=== PATIENT | female | born 1990 | race African-American/Black ===

== ENCOUNTER 2016-07-13 13:26 | Emergency (ER) | payer SELFPAY ==
[~2016-07-13] VITALS: Ht 157.5 cm; Wt 86.2 kg
[~2016-07-13 13:26] MED LIST: NKM
--- NOTE | 2016-07-13 13:55 | Emergency Room Report ---
History of Present Illness General Chief Complaint: Vomiting Source: Patient Present Illness HPI 26-year-old female presents emergency department complaining of nausea vomiting and diarrhea x2 days. Patient also reports other family members with similar symptoms. Patient denies fevers or chills patient denies abdominal pain. Patient reports nausea his primary symptom and states that she has had 6 episodes of vomiting this morning and approximately 3 yesterday. Patient denies blood in the vomit or stool. She denies recent travel. She denies . Patient denies dysuria, hematuria or frequency. Denies dizziness, imbalance, BRITT, or syncope. Denies CP, Palpitations, LOC, AMS, dizziness, Changes in Vision, Sensation, paresthesias, or a sudden severe headache. Allergies: Coded Allergies: No Known Allergies (Unverified , 02/21/12) Patient History Past Medical History: see triage record Past Surgical History: none Pertinent Family History: none Last Menstrual Period: last week Now: No Immunizations: UTD Reviewed Nursing Documentation: PMH: Agreed, PSxH: Agreed Nursing Documentation-PMH Past Medical History: No Stated History Review of Systems All Other Systems: negative except mentioned in HPI Physical Exam Vital Signs Date Time Temp Pulse Resp B/P Pulse Ox O2 Delivery O2 Flow Rate FiO2 07/13/ 13:49 97.9 74 18 116/78 98 Room Air Sp02 EP Interpretation: reviewed, normal General Appearance: alert, GCS 15, non-toxic, mild distress - pt. is nauseated and recently vomited. Head: normocephalic, atraumatic Eyes: bilateral eye PERRL, bilateral eye normal inspection ENT: hearing grossly normal, normal pharynx, no angioedema, normal voice Neck: full range of motion, supple/symm/no masses Respiratory: lungs clear, normal breath sounds, speaking full sentences Cardiovascular #1: regular rate, rhythm, no edema Gastrointestinal: normal bowel sounds, non tender, soft, no guarding, no rebound, other - no abdominal TTP Rectal: deferred Genitourinary: normal inspection, no CVA tenderness Musculoskeletal: back normal, gait/station normal, normal range of motion, non- tender, no calf tenderness Neurologic: alert, oriented x3, responsive, motor strength/tone normal, sensory intact, cerebellar normal, normal gait, speech normal Psychiatric: judgement/insight normal, memory normal, mood/affect normal, no suicidal/homicidal ideation Skin: normal color, no rash, warm/dry, well hydrated Lymphatic: no adenopathy Medical Decision Making PA Attestation Dr. Deluca is my supervising Physician whom patient management has been discussed with. Diagnostic Impression: Primary Impression: UTI (urinary tract infection) Qualified Codes: N30.00 - Acute cystitis without hematuria Additional Impression: Gastroenteritis ER Course 26-year-old female presents emergency department complaining of nausea vomiting and diarrhea x2 days. Patient also reports other family members with similar symptoms. Patient denies fevers or chills patient denies abdominal pain. Patient reports nausea his primary symptom and states that she has had 6 episodes of vomiting this morning and approximately 3 yesterday. Patient denies blood in the vomit or stool. She denies recent travel. She denies . Patient denies dysuria, hematuria or frequency. Ddx considered but are not limited to GE, colitis, acute appy, SBO, * , dehydration Vital signs: pt. is afebrile, H&PE are most consistent with GE - given Hx that family member have had vomiting and diarrhea as well, pt is afebrile and no abdominal tenderness I do not feel laboratory work up beyond UA/hcg is necessary at this time. PE does not suggest hypovolemia at this time. ORDERS: -UA: indicates UTI, bacteria, Nitrite positive, and wbc's - Urine Hcg; Negative. ED INTERVENTIONS: - 4mg PO zofran for nausea. -GI Cocktail --- pt threw up the GI cocktail and initial Zofran as all were given at the same time. - 4mg Zofran PO -10mg Reglan PO -Pt. tolerate oral fluid challenge without vomiting for the past 30 minutes. pt. states she is feeling better. DISCHARGE: At this time pt. is stable for d/c to home. Will provide printed patient care instructions, and any necessary prescriptions. Care plan and follow up instructions have been discussed with the patient prior to discharge. Last Vital Signs Date Time Temp Pulse Resp B/P Pulse Ox O2 Delivery O2 Flow Rate FiO2 07/13/16 13:49 97.9 74 18 116/78 98 Room Air Disposition: HOME, SELF-CARE Condition: Stable Scripts Nitrofurantoin Monohyd/M-Cryst* (MACROBID 100 MG*) 100 Mg Capsule 100 MG ORAL EVERY 12 HOURS for 5 Days, #10 CAP Prov: Rehana Quinonez 07/13/16 Dicyclomine Hcl* (BENTYL*) 10 Mg Capsule 10 MG ORAL FOUR TIMES A DAY for 2 Days, #10 CAP Prov: Rehana Quinonez 07/13/16 Ondansetron Odt* (ZOFRAN ODT*) 8 Mg Tab.rapdis 8 MG ORAL Q6H Y for Nausea & Vomiting, #20 TAB Prov: Rehana Quinonez 07/13/16 Patient Instructions: Nausea and Vomiting, Adult, Urinary Tract Infection Additional Instructions: Take medications as directed. Follow up with PCP in 3-5 days Return sooner to ED if new symptoms occur, or current symptoms become worse. - Please note that this Emergency Department Report was dictated using [employer] floor attendant technology software, occasionally this can lead to erroneous entry secondary to interpretation by the dictation equipment. Rehana Quinonez Jul 13, 2016 13:55
[2016-07-13] MEDS ORDERED: Dicyclomine HCl 10mg/5ml oral soln ORAL ONE (14:00)
[2016-07-13] MEDS ORDERED: Mylanta II UD 30ml ORAL ONE (14:00)
[2016-07-13] MEDS ORDERED: Lidocaine 2% Visc 15ml soln ORAL ONE (14:00)
[2016-07-13 14:29] LABS: APPEARANCE,URINE SLIGHTLY CLOUDY; KETONES,URINE 4+ (NEGATIVE); LEUKOCYTE ESTERASE ,URINE 2+ (NEGATIVE); NITRITE,URINE POSITIVE (NEGATIVE); PH,URINE 6.5 (4.5-8.0); PROTEIN,URINE 3+ (NEGATIVE); UROBILINOGEN,URINE 8 MG/DL (0.0-1.0)
[2016-07-13 14:39] LABS: BACTERIA,URINE MODERATE /HPF; MUCUS,URINE FEW /LPF (NONE/OCC); SQUAMOUS EPITHELIAL CELL,UR MODERATE /LPF (NONE/OCC)
[2016-07-13 14:40] LABS: ICTOTEST NEGATIVE
[2016-07-13 15:24] VITALS: BP 116/78
[2016-07-13] MEDS ORDERED: NITROFURANTOIN100 M2 ORAL (16:28)
[2016-07-13] MEDS ORDERED: ZOFRAN ODT8 MG ORAL (16:28)
[2016-07-13] MEDS ORDERED: BENTYL10 MG ORAL (16:28)
[2016-07-13 17:25] VITALS: BP 121/76
[2016-07-13 17:26] VITALS: BP 116/78
== END 2016-07-13 17:26 | disposition home or self-care (01) ==
LOC: EMR 15:17
DX: N30.00 Acute cystitis without hematuria (principal); K52.9 Noninfective gastroenteritis and colitis, unspecified
CPT/HCPCS: 81003; 81025; 87086; 87181; 99284

== ENCOUNTER 2016-09-02 20:40 | Emergency (ER) | payer MEDICAID ==
[~2016-09-02] VITALS: Ht 157.5 cm; Wt 73.0 kg
[~2016-09-02 20:40] MED LIST changes: +BENTYL10 MG ORAL; +NITROFURANTOIN100 M2 ORAL; +ZOFRAN ODT8 MG ORAL
[2016-09-02] MEDS ORDERED: NKM (21:00)
[2016-09-02] MEDS ORDERED: ANUSOL-HC25 MG RECTAL (21:12)
--- NOTE | 2016-09-02 21:12 | Emergency Room Report ---
History of Present Illness General Chief Complaint: Gastrointestinal Illness Source: Patient Present Illness HPI Is a 26-year-old female with no past medical history. She presents with chief complaint of rectal bleeding. Has been on off for the last couple months. Sometimes blood in double. Worse with have a bowel movement. Denies any pain. Denies any nausea vomiting. No other complaint. Allergies: Coded Allergies: No Known Allergies (Unverified , 02/21/12) Patient History Past Medical History: none, see triage record, old chart reviewed Past Surgical History: torey Pertinent Family History: none Social History: Denies: smoking Last Menstrual Period: July Now: No Immunizations: other Reviewed Nursing Documentation: PMH: Agreed, PSxH: Agreed Nursing Documentation-PMH Hx Gastrointestinal Problems: Yes - CHOLECYSTECTOMY 2010 Review of Systems Eye: Denies: blurred vision, eye pain ENT: Denies: ear pain, nose congestion, throat swelling Respiratory: Denies: cough, shortness of breath Cardiovascular: Denies: chest pain, palpitations Gastrointestinal: Denies: abdominal pain, diarrhea, nausea, vomiting Musculoskeletal: Denies: back pain, joint pain Skin: Denies: rash Neurological: Denies: headache, numbness Endocrine: Denies: increased thirst, increased urine Hematologic/Lymphatic: Denies: easy bruising All Other Systems: negative except mentioned in HPI Physical Exam Vital Signs Date Time Temp Pulse Resp B/P Pulse Ox O2 Delivery O2 Flow Rate FiO2 09/02/16 20:52 98.4 95 16 99/66 100 Room Air vitals normal Sp02 EP Interpretation: reviewed, normal General Appearance: well appearing, no apparent distress, alert Head: normocephalic, atraumatic Eyes: bilateral eye EOMI, bilateral eye PERRL ENT: hearing grossly normal, normal pharynx Neck: full range of motion, supple, no meningismus Respiratory: chest non-tender, lungs clear, normal breath sounds Cardiovascular #1: regular rate, rhythm, no murmur Gastrointestinal: normal bowel sounds, non tender, no mass, no organomegaly, no bruit, non-distended Rectal: other - Small internal hemorrhoid at 5:00 position. This was done with female nurse electric tripper machine operator. Musculoskeletal: back normal, gait/station normal, normal range of motion Psychiatric: mood/affect normal Skin: warm/dry Medical Decision Making Diagnostic Impression: Primary Impression: Internal hemorrhoid, bleeding ER Course Patient with rectal bleeding from internal hemorrhoid. No evidence of thrombosis. No evidence of active bleeding. We'll discharge home. Last Vital Signs Date Time Temp Pulse Resp B/P Pulse Ox O2 Delivery O2 Flow Rate FiO2 09/02/16 20:52 98.4 95 16 99/66 100 Room Air Status: improved Disposition: HOME, SELF-CARE Condition: Stable Scripts Hydrocortisone Acetate* (ANUSOL-HC*) 25 Mg Supp.rect 1 SUPP RECTAL TWICE A DAY, #14 SUPP Prov: JOSE YOUNGBLOOD M.D. 09/02/16 Additional Instructions: Followup with your DrScotty in 3-5 days. You may need to see a GI Dr. Return if worse. JOSE YOUNGBLOOD M.D. Sep 02, 2016 21:12
[2016-09-02 21:14] VITALS: BP 99/66
[2016-09-02 21:18] VITALS: BP 99/66
== END 2016-09-02 21:18 | disposition home or self-care (01) ==
LOC: EMR 21:15
DX: K64.8 Other hemorrhoids (principal)
CPT/HCPCS: 99283

== ENCOUNTER 2016-11-10 00:16 | Emergency (ER) | payer MEDICAID ==
[~2016-11-10] VITALS: Ht 157.5 cm; Wt 73.5 kg
[~2016-11-10 00:16] MED LIST changes: +ANUSOL-HC25 MG RECTAL
[2016-11-10 00:45] VITALS: BP 117/81
[2016-11-10 01:39] LABS: APPEARANCE,URINE CLEAR; KETONES,URINE NEGATIVE (NEGATIVE); LEUKOCYTE ESTERASE ,URINE 2+ (NEGATIVE); NITRITE,URINE NEGATIVE (NEGATIVE); PH,URINE 6 (4.5-8.0); PROTEIN,URINE NEGATIVE (NEGATIVE); UROBILINOGEN,URINE 1 MG/DL (0.0-1.0)
[2016-11-10 01:40] LABS: BASOPHILS % (AUTO) 1.5 % (0.0-2.0); EOSINOPHILS % (AUTO) 2.7 % (0.0-3.0); LYMPHOCYTES % (AUTO) 48.3 % (20.0-45.0); MEAN CORPUSCULAR HEMOGLOBIN 30.7 PG (27.0-31.0); MEAN CORPUSCULAR HGB CONC 33.1 G/DL (32.0-36.0); MEAN CORPUSCULAR VOLUME 93 FL (80-99); MEAN PLATELET VOLUME 6.5 FL (6.5-10.1); MONOCYTES % (AUTO) 4.3 % (1.0-10.0); NEUTROPHILS % (AUTO) 43.2 % (45.0-75.0); PLATELET COUNT 269 K/UL (150-450); RED BLOOD COUNT 3.74 M/UL (4.20-5.40); RED CELL DISTRIBUTION WIDTH 12.6 % (11.6-14.8); WHITE BLOOD COUNT 5.4 K/UL (4.8-10.8)
[2016-11-10 01:50] LABS: BACTERIA,URINE FEW /HPF; SQUAMOUS EPITHELIAL CELL,UR FEW /LPF (NONE/OCC); WBC,URINE 15-20 /HPF (0 - 2)
[2016-11-10 01:57] LABS: ALANINE AMINOTRANSFERASE 7 U/L (3-33); ALBUMIN/GLOBULIN RATIO 1.2 (1.0-2.7); ANION GAP 12 (5-15); ASPARTATE AMINO TRANSFERASE 13 U/L (5-40); CALCIUM 9.1 mg/dL (8.6-10.2); CARBON DIOXIDE 24 mEQ/L (20-30); CHLORIDE 104 mEQ/L (98-107); CREATININE 0.7 mg/dL (0.5-0.9); GLOMERULAR FILTRATION RATE > 60 mL/min (>60); HEMOLYSIS 10; LIPASE 39 U/L (< 60); SODIUM 140 mEQ/L (135-145); TOTAL PROTEIN 7.3 g/dL (6.6-8.7)
[2016-11-10 02:45] VITALS: BP 125/79
[2016-11-10] MEDS ORDERED: IBUPROFEN600 MG ORAL (04:40)
[2016-11-10 04:45] VITALS: BP 121/75
--- NOTE | 2016-11-10 05:36 | Emergency Room Report ---
History of Present Illness General Chief Complaint: Vaginal Source: Patient Present Illness HPI 26-year-old female presents ED complaining of cramping pain and vaginal bleeding x2 days. States that she had her usual period, which then started to subside but states that bleeding resumed again. States that this is unusual for her as she typically has regular periods. Pain is cramping, 5 at 10, nonradiating. Denies fevers or chills. Denies nausea or vomiting. No other aggravating relieving factors. Denies any other associated symptoms Allergies: Coded Allergies: No Known Allergies (Unverified , 11/10/16) Patient History Past Medical History: none Past Surgical History: torey Pertinent Family History: none Social History: Denies: alcohol use, drug use, smoking Last Menstrual Period: 10/31/16 Now: No Immunizations: UTD Reviewed Nursing Documentation: PMH: Agreed, PSxH: Agreed Nursing Documentation-PMH Hx Gastrointestinal Problems: Yes - gallbladder removed 2010 Review of Systems All Other Systems: negative except mentioned in HPI Physical Exam Vital Signs Date Time Temp Pulse Resp B/P Pulse Ox O2 Delivery O2 Flow Rate FiO2 11/10/16 00:37 97.9 75 18 117/81 99 Room Air Sp02 EP Interpretation: reviewed, normal General Appearance: no apparent distress, alert, GCS 15, non-toxic Head: normocephalic, atraumatic Eyes: bilateral eye PERRL, bilateral eye normal inspection ENT: hearing grossly normal, normal pharynx, no angioedema, normal voice Neck: full range of motion, supple/symm/no masses Respiratory: chest non-tender, lungs clear, normal breath sounds, speaking full sentences Cardiovascular #1: regular rate, rhythm, no edema Cardiovascular #2: 2+ carotid (R), 2+ carotid (L), 2+ radial (R), 2+ radial (L) , 2+ dorsalis pedis (R), 2+ dorsalis pedis (L) Gastrointestinal: normal bowel sounds, non tender, soft, non-distended, no guarding, no rebound Rectal: deferred Genitourinary: normal inspection, no CVA tenderness Musculoskeletal: back normal, gait/station normal, normal range of motion, non- tender Neurologic: alert, oriented x3, responsive, motor strength/tone normal, sensory intact, speech normal Psychiatric: judgement/insight normal, memory normal, mood/affect normal, no suicidal/homicidal ideation Reflexes: 3+ bicep (R), 3+ bicep (L), 3+ tricep (R), 3+ tricep (L), 3+ knee (R) , 3+ knee (L) Skin: normal color, no rash, warm/dry, well hydrated Lymphatic: no adenopathy Medical Decision Making Diagnostic Impression: Primary Impression: Dysfunctional uterine bleeding ER Course Hospital Course 26-year-old F presents to ED with vaginal bleeding, abd pain Differential diagnosis includes- ovarian cyst, torsion, ectopic , DUB Clinical course Patient placed on stretcher. After initial history and physical I ordered labs , IV fluids, and pelvic US Labs - no leukocytosis, Hb/Hct stable, electrolytes ok, LFTs normal, UA + blood pelvic US - R ovary with multiple follicles likely DUB. recommend followup with OBGYN I feel this is a highly complex case requiring extensive working including EKG/ Rhythm strip, Xray/CT/US, Blood/urine lab work, repeat exams while in ED, and administration of strong opiates/narcotics for pain control, admission to hospital or close patient follow up. Diagnosis - dysfunctional uterine bleeding Stable and discharged to home. Followup with OBGYN. Return to ED if symptoms recur or worsen Labs Test 11/10/16 01:25 White Blood Count 5.4 K/UL (4.8-10.8) Red Blood Count 3.74 M/UL (4.20-5.40) Hemoglobin 11.5 G/DL (12.0-16.0) Hematocrit 34.7 % (37.0-47.0) Mean Corpuscular Volume 93 FL (80-99) Mean Corpuscular Hemoglobin 30.7 PG (27.0-31.0) Mean Corpuscular Hemoglobin Concent 33.1 G/DL (32.0-36.0) Red Cell Distribution Width 12.6 % (11.6-14.8) Platelet Count 269 K/UL (150-450) Mean Platelet Volume 6.5 FL (6.5-10.1) Neutrophils (%) (Auto) 43.2 % (45.0-75.0) Lymphocytes (%) (Auto) 48.3 % (20.0-45.0) Monocytes (%) (Auto) 4.3 % (1.0-10.0) Eosinophils (%) (Auto) 2.7 % (0.0-3.0) Basophils (%) (Auto) 1.5 % (0.0-2.0) Urine Color Yellow Urine Appearance Clear Urine pH 6 (4.5-8.0) Urine Specific [place] 1.015 (1.005-1.035) Urine Protein Negative (NEGATIVE) Urine Glucose (UA) Negative (NEGATIVE) Urine Ketones Negative (NEGATIVE) Urine Occult Blood 4+ (NEGATIVE) Urine Nitrite Negative (NEGATIVE) Urine Bilirubin Negative (NEGATIVE) Urine Urobilinogen 1 MG/DL (0.0-1.0) Urine Leukocyte Esterase 2+ (NEGATIVE) Urine RBC 5-10 /HPF (0 - 2) Urine WBC 15-20 /HPF (0 - 2) Urine Squamous Epithelial Cells Few /LPF (NONE/OCC) Urine Bacteria Few /HPF (NONE) Urine HCG, Qualitative Negative Sodium Level 140 mEQ/L (135-145) Potassium Level 4.0 mEQ/L (3.4-4.9) Chloride Level 104 mEQ/L (98-107) Carbon Dioxide Level 24 mEQ/L (20-30) Anion Gap 12 (5-15) Blood Urea Nitrogen 13 mg/dL (7-23) Creatinine 0.7 mg/dL (0.5-0.9) Estimat Glomerular Filtration Rate > 60 mL/min (>60) Glucose Level 106 mg/dL (74-106) Calcium Level 9.1 mg/dL (8.6-10.2) Total Bilirubin 0.3 mg/dL (0.0-1.2) Aspartate Amino Transf (AST/SGOT) 13 U/L (5-40) Alanine Aminotransferase (ALT/SGPT) 7 U/L (3-33) Alkaline Phosphatase 62 U/L (35-104) Total Protein 7.3 g/dL (6.6-8.7) Albumin 4.0 g/dL (3.5-5.2) Globulin 3.3 g/dL Albumin/Globulin Ratio 1.2 (1.0-2.7) Lipase 39 U/L (< 60) CT/MRI/US Diagnostic Results CT/MRI/US Diagnostic Results : Imaging Test Ordered: Pelvic US Impression R ovary with multiple follicles. L ovary unremarkable Last Vital Signs Date Time Temp Pulse Resp B/P Pulse Ox O2 Delivery O2 Flow Rate FiO2 8/16/17 04:45 97.9 71 16 121/75 100 Room Air Status: improved Disposition: HOME, SELF-CARE Condition: Stable Scripts Ibuprofen* (MOTRIN*) 600 Mg Tablet 600 MG ORAL Q8H Y for For Pain, #30 TAB 0 Refills Prov: RICHARD SOLORIO M.D. 11/10/16 Patient Instructions: Abnormal Uterine Bleeding, [id number] RICHARD SOLORIO M.D. Nov 10, 2016 05:36
--- NOTE | 2016-11-10 10:15 | Diagnostic Imaging Report ---
Indication: ABD PAIN bleeding and pelvic pain negative urine test Technique: Transabdominal and transvaginal images Comparison: None Findings: Uterus is retroverted and retroflexed, measures 10.4 cm in length by 5.1 cm AP. Endometrium measures 3 mm thick. No myometrial abnormality. Right ovary measures 3.2 cm length. Left ovary measures 3.2 cm length. No adnexal mass. No free cul-de-sac fluid Impression: Negative
== END 2016-11-10 04:45 | disposition home or self-care (01) ==
LOC: EMR 00:58
DX: N93.8 Other specified abnormal uterine and vaginal bleeding (principal); Z90.49 Acquired absence of other specified parts of digestive tract
CPT/HCPCS: 36415; 76856; 80053; 81003; 81025; 83690; 85025; 87086; 96360

== ENCOUNTER 2019-02-02 16:59 | Emergency (ER) | payer SELFPAY ==
[~2019-02-02] VITALS: Ht 157.5 cm; Wt 81.6 kg
[~2019-02-02 16:59] MED LIST changes: +IBUPROFEN600 MG ORAL
[2019-02-02 17:00] VITALS: BP 104/74
--- NOTE | 2019-02-02 17:00 | NUR ---
ED Nurse Note: Patient presented to ER from home brought in by self c/o flu-like symptoms: difficulty breathing due to congestion, sore throat, white spots in throat, and nasal congestion. Patient aao x 4 and ambulatory. Patient rates pain 10/10. no acute distress noted.
[2019-02-02] MEDS ORDERED: PROMETHAZINE-D118 ML ORAL (17:33)
[2019-02-02] MEDS ORDERED: ALBUTEROL SULF8.5 GM INH (17:33)
[2019-02-02] MEDS ORDERED: AMOXICILLIN500 MG ORAL (17:33)
[2019-02-02 17:37] VITALS: BP 110/75
--- NOTE | 2019-02-02 17:37 | NUR ---
ER DISCHARGE NOTE: Patient is cleared to be discharged per ERMD, pt is aox4, on room air, with stable vital signs. pt was given dc and prescription instructions, pt was able to verbalize understanding, pt id band removed. pt is able to ambulate with steady gait. pt took all belongings. pt stable upon discharge.
--- NOTE | 2019-02-02 18:01 | Emergency Room Report ---
History of Present Illness General Chief Complaint: Sore Throat Source: Patient Present Illness HPI 29-year-old female presents ED for evaluation. Complaining of sore throat and cough and congestion for the last 8 days. Saw white spots on her throat so she came to the ED for evaluation. Pain is dull, 9 out of 10, nonradiating. Denies fevers or chills. Denies sick contacts or recent travel. Denies recent antibiotic received flu shot this year. Admits to smoking marijuana. No other aggravating relieving factors. Denies any other associated symptoms Allergies: Coded Allergies: No Known Allergies (Unverified , 11/10/16) Patient History Past Medical History: none Past Surgical History: torey Pertinent Family History: none Social History: Reports: smoking; Denies: alcohol use, drug use Now: No Immunizations: UTD Reviewed Nursing Documentation: PMH: Agreed; PSxH: Agreed Nursing Documentation-PMH Past Medical History: No History, Except For Hx Gastrointestinal Problems: Yes - gallbladder removed 2010 Review of Systems All Other Systems: negative except mentioned in HPI Physical Exam Vital Signs Date Time Temp Pulse Resp B/P (MAP) Pulse Ox O2 Delivery O2 Flow Rate FiO2 02/02/19 17:00 98.4 17 104/74 96 Room Air 02/02/19 17:12 89 Sp02 EP Interpretation: reviewed, normal General Appearance: no apparent distress, alert, GCS 15, non-toxic Head: normocephalic, atraumatic Eyes: bilateral eye normal inspection, bilateral eye PERRL ENT: hearing grossly normal, no angioedema, normal voice, TMs + canals normal, uvula midline, pharyngeal erythema, tonsillar exudate Neck: full range of motion, supple, no meningismus, supple/symm/no masses Respiratory: chest non-tender, lungs clear, normal breath sounds, speaking full sentences Cardiovascular #1: regular rate, rhythm, no edema Cardiovascular #2: 2+ carotid (R), 2+ carotid (L), 2+ radial (R), 2+ radial (L) , 2+ dorsalis pedis (R), 2+ dorsalis pedis (L) Gastrointestinal: normal bowel sounds, non tender, soft, non-distended, no guarding, no rebound Rectal: deferred Genitourinary: normal inspection, no CVA tenderness Musculoskeletal: back normal, gait/station normal, normal range of motion, non- tender Neurologic: alert, oriented x3, responsive, motor strength/tone normal, sensory intact, speech normal Psychiatric: judgement/insight normal, memory normal, mood/affect normal, no suicidal/homicidal ideation Reflexes: 3+ bicep (R), 3+ bicep (L), 3+ tricep (R), 3+ tricep (L), 3+ knee (R) , 3+ knee (L) Skin: no rash Lymphatic: no adenopathy Medical Decision Making Diagnostic Impression: Primary Impression: Pharyngitis Qualified Codes: J02.9 - Acute pharyngitis, unspecified ER Course Hospital Course 29-year-old female presents to ED complaining of sore throat + cough Differential diagnoses include: URI, pharyngitis, otitis media Clinical course Patient placed on stretcher. After initial history, physical exam reveals a female in no acute distress. Bilateral TM unremarkable. There is pharyngeal erythema w/ tonsillar exudates. No lymphadenopathy. no nuchal rigidity. lungs clear. Clinical findings consistent with pharyngitis. discussed finding with patient . will discharge home with Rx Abx, albuterol, cough medication. states she has a PMD. Diagnosis - pharyngitis Stable and discharged home with prescriptions for amoxicillin, promethazine/DM, albuterol. Instructed to followup with PMD. return to ED if symptoms recur or worsen Last Vital Signs Date Time Temp Pulse Resp B/P (MAP) Pulse Ox O2 Delivery O2 Flow Rate FiO2 02/02/19 17:12 99.3 89 17 113/84 (94) 99 Room Air Status: improved Disposition: HOME, SELF-CARE Condition: Stable Scripts D-Methorphan Hb/Prometh Hcl* (PROMETHAZINE-DM SYRUP*) 118 Ml Syrup 5 ML ORAL Q6H PRN for For Cough, #118 ML 0 Refills Prov: Pierre Degroot MD 02/02/19 Amoxicillin* (AMOXIL*) 500 Mg Capsule 500 MG ORAL THREE TIMES A DAY, #21 CAP Prov: Pierre Degroot MD 02/02/19 Albuterol Sulfate* (ALBUTEROL SULFATE MDI*) 8.5 Gm Hfa.aer.ad 2 PUFF INH Q6H, #1 EA 0 Refills Prov: Pierre Degroot MD 02/02/19 Referrals: NOT CHOSEN IPA/,REFERRING (PCP) Patient Instructions: Pharyngitis, [id number] Pierre Degroot MD Feb 02, 2019 18:01
== END 2019-02-02 17:37 | disposition home or self-care (01) ==
LOC: EMR 17:28
DX: J02.9 Acute pharyngitis, unspecified (principal); Z90.49 Acquired absence of other specified parts of digestive tract
CPT/HCPCS: 99282